=== PATIENT | female | born 1960 | race Caucasian/White ===

== ENCOUNTER → 2016-07-22 | Outpatient (CLI) | payer BC ==
[~2016-07-22] MED LIST: ASPIRIN E.C. 8181 MG PO; BELVIQ PO; GLUCOPHAGE500 MG/TAB PO; MICROZIDE12.5 MG PO; MOBIC 7.5MG7.5 MG PO; MOBIC15 MG PO; NORCO 325 MG-7.1 TAB PO; PREMARIN VAG42.5 GM VG; PRINZIDE 12.5 M1 TA1 PO; PROAIR HFA0.09 MG/AC IH; SYNTHROID0.175 MG PO; SYNTHROID0.2 MG/TAB PO
== END ==
LOC: MC.RAD 09:24
DX: Z12.31 Encounter for screening mammogram for malignant neoplasm of breast (principal)

== ENCOUNTER → 2017-08-04 | Outpatient (CLI) | payer BC ==
[~2017-08-04] MED LIST changes: +ASPIRIN 32325 MG/TAB PO; +MACROBID 1100 MG/CAP PO; +ULTRAM 50MG TAB50 MG PO; +ZESTRIL 20MG TA20 MG PO
== END ==
LOC: MC.RAD 11:35
DX: Z12.31 Encounter for screening mammogram for malignant neoplasm of breast (principal)

== ENCOUNTER → 2019-03-15 | Outpatient (CLI) | payer BC | LOC: BHSO 12:56 | DX: F43.10 Post-traumatic stress disorder, unspecified (principal) ==

== ENCOUNTER → 2019-04-13 | Outpatient (CLI) | payer BC | LOC: BHSO 08:51 | DX: F43.10 Post-traumatic stress disorder, unspecified (principal) ==

== ENCOUNTER → 2023-08-14 | Outpatient (CLI) | payer BC | LOC: MC.RAD 14:20 | DX: Z12.31 Encounter for screening mammogram for malignant neoplasm of breast (principal) ==